=== PATIENT | female | born 1965 | race Two or more races ===

== ENCOUNTER 2017-07-12 19:55 | Emergency (ER) | payer OTHER ==
[2017-07-12 20:03] VITALS: BP 153/85
[2017-07-12] MEDS ORDERED: DOXYcycline CAP(*) 100 MG PO ONE (20:56)
--- NOTE | 2017-07-15 19:24 | UC ---
Roge Castellon Alfonso, scribed for Buffy De Jesus DO on 07/12/17 at 2042 . General HPI - HPI Summary HPI Summary: This patient is a 52 year old F presenting to [facility] with a chief complaint of a tick at her left knee noticed at 1930 today. She was in [place] today. The patient rates the pain 6/10 in severity. Symptoms aggravated by nothing. Symptoms alleviated by nothing. Patient denies cough, sore throat, fever, chills , headache, myalgia, and rash. Medications reviewed this visit. - History of Current Complaint Chief Complaint: [place] Stated Complaint: TICK BITE Time Seen by Provider: 07/12/17 20:13 Hx Obtained From: Patient Onset/Duration: Sudden Onset, Lasting Hours - 1929 today, Still Present Timing: Constant Current Severity: Moderate Pain Intensity: 6 - /10 Aggravating: nothing Alleviating: nothing Associated Signs & Symptoms: Positive: Other - Patient denies cough, sore throat , fever, chills, headache, myalgia, and rash. - Allergy/Home Medications Allergies/Adverse Reactions: Allergies Allergy/AdvReac Type Severity Reaction Status Date / Time ENVIROMENTAL Allergy Runny Nose Uncoded 07/12/17 20:03 Home Medications: Home Medications Hydrochlorothiazide TAB* [Hydrodiuril TAB*] 25 mg PO DAILY 07/12/17 [History Confirmed 07/12/17] PMH/Surg Hx/FS Hx/Imm Hx Endocrine History: Hypothyroidism Cardiovascular History: Hypertension - Surgical History Surgical History: Yes Surgery Procedure, Year, and Place: ; one wisdom tooth - Family History Known Family History: Positive: Hypertension - Social History Alcohol Use: None Alcohol Amount: 2 per week Substance Use Type: None Smoking Status (MU): Never Smoked Tobacco Review of Systems Constitutional: Other - Negative fever, chills Skin: Other - tick at her left knee; negative rash ENT: Other - Negative sore throat Respiratory: Other - Negative cough Musculoskeletal: Other: - Negative myalgia All Other Systems Reviewed And Are Negative: Yes Physical Exam Triage Information Reviewed: Yes Appearance: Well-Appearing, No Pain Distress, Obese Vital Signs: Initial Vital Signs Temp 98.1 F 07/12/17 19:59 Pulse 71 07/12/17 19:59 Resp 16 07/12/17 19:59 BP 153/85 07/12/17 19:59 Pulse Ox 97 07/12/17 19:59 Vital Signs Reviewed: Yes Eyes: Positive: Conjunctiva Clear. Negative: Discharge ENT: Positive: Hearing grossly normal, Pharyngeal erythema, TMs normal. Negative: Tonsillar swelling, Tonsillar exudate, Trismus, Muffled/hoarse voice Neck: Positive: Supple, Nontender Respiratory: Positive: Chest non-tender, Lungs clear, Normal breath sounds, No respiratory distress Cardiovascular: Positive: RRR, No Murmur Abdomen Description: Positive: Nontender, Soft Bowel Sounds: Positive: Present Musculoskeletal: Positive: Strength Intact Neurological: Positive: Alert, Muscle Tone Normal Psychological: Positive: Age Appropriate Behavior Skin Exam: Normal Skin: Positive: Other - Warm, Dry, Normal color. Tick removed intact and alive from left knee. Course/Dx - Course Course Of Treatment: This patient is a 52 year old F presenting to [facility] with a chief complaint of a tick at her left knee noticed at 1930 today. She was in the [place] today. The patient rates the pain 6/10 in severity. Symptoms aggravated by nothing. Symptoms alleviated by nothing. Patient denies cough, sore throat, fever, chills, headache, myalgia, and rash. Medications reviewed this visit. Patient will be discharged with follow up from PCP. The patient is agreeable with this plan. - Differential Dx - Multi-Symptom Provider Diagnoses: tick bite Discharge - Discharge Plan Condition: Stable Disposition: HOME Patient Education Materials: Tick Bite (ED) Referrals: Randy Mc MD [Primary Care Provider] - If Needed Additional Instructions: YOUR BLOOD PRESSURE WAS ELEVATED AT THIS VISIT THIS DOES NOT MEAN YOU HAVE HIGH BLOOD PRESSURE. FOLLOW UP WITH YOUR PRIMARY CARE PROVIDER WITHIN ONE WEEK FOR THIS. The documentation as recorded by the Roge shabazz Alfonso accurately reflects the service I personally performed and the decisions made by me, Buffy De Jesus DO.
== END 2017-07-12 21:10 | disposition home or self-care (01) ==
LOC: UCEAST 19:55
DX: S80.262A Insect bite (nonvenomous), left knee, initial encounter (principal); W57.XXXA Bitten or stung by nonvenomous insect and other nonvenomous arthropods, initial encounter; E03.9 Hypothyroidism, unspecified; I10 Essential (primary) hypertension
CPT/HCPCS: 99212; A9270-GY; G0463